=== PATIENT | female | born 1945 | race Caucasian/White ===

== ENCOUNTER 2018-12-27 09:42 | Observation (INO) | payer MEDICARE, OTHER ==
[~2018-12-27] VITALS: Ht 157.5 cm; Wt 56.8 kg
[2018-12-27 10:36] LABS: BASOPHILS # (AUTO) 0.1 X10'3 (0-0.2); BASOPHILS % (AUTO) 1.3 % (0-1); EOSINOPHILS # (AUTO) 0.1 X10'3 (0-0.9); EOSINOPHILS % (AUTO) 1.9 % (0-6); HEMATOCRIT 39.3 % (35.0-45.0); HEMOGLOBIN 13.5 g/dl (12.0-16.0); LYMPHOCYTES # (AUTO) 1.3 X10'3 (1.1-4.8); LYMPHOCYTES % (AUTO) 20.1 % (21-51); MEAN CORPUSCULAR HEMOGLOBIN 30.8 PG (27.0-31.0); MEAN CORPUSCULAR HGB CONC 34.4 g/dL (33.0-36.5); MEAN CORPUSCULAR VOLUME 89.7 FL (78-98); MONOCYTES # (AUTO) 0.7 X10'3 (0-0.9); MONOCYTES % (AUTO) 11.1 % (2-12); NEUTROPHILS # (AUTO) 4.3 X10'3 (1.8-7.7); NEUTROPHILS % (AUTO) 65.6 % (42-75); PLATELET COUNT 316 X10'3 (140-440); RED BLOOD COUNT 4.38 X10'6 (4.20-5.60); WHITE BLOOD COUNT 6.6 X10'3 (4.5-11.0)
--- NOTE | 2018-12-27 10:43 | NUR ---
PT AMBULATORY TO BATHROOM TO TRY TO PROVIDE URINE SAMPLE PER ORDERS NOW
[2018-12-27 10:50] LABS: ALANINE AMINOTRANSFERASE 18 U/L (12-78); ALBUMIN 3.7 G/DL (3.4-5.0); ALBUMIN/GLOBULIN RATIO 0.8 (1.1-1.5); ALKALINE PHOSPHATASE 143 IU/L (46-116); ANION GAP 10 (8-16); ASPARTATE AMINO TRANSFERASE 14 U/L (10-37); BILIRUBIN,TOTAL 0.4 MG/DL (0.1-1.0); BLOOD UREA NITROGEN 22 MG/DL (7-18); BUN/CREATININE RATIO 21.6 (6.6-38.0); CALCIUM 9.2 MG/DL (8.5-10.1); CHLORIDE 105 MMOL/L (99-107); CREATININE 1.02 MG/DL (0.40-0.90); GLUCOSE 100 MG/DL (70-104); POTASSIUM 4.5 MMOL/L (3.5-5.1); SODIUM 142 MMOL/L (135-145); TOTAL PROTEIN 8.3 G/DL (6.4-8.2); eGFR 53 ML/MIN
[2018-12-27 12:24] LABS: CLARITY,URINE BLOODY (Clear); COLOR,URINE RED (Yellow); UA COLLECTION TYPE VOIDED
[2018-12-27 12:47] LABS: RBC,URINE TNTC /HPF (0-2)
[2018-12-27 12:49] LABS: BACTERIA,URINE NONE SEEN /HPF (Neg); SQUAMOUS EPITHELIAL CELL,UR NONE SEEN /LPF (FEW); WBC,URINE 0-4 /HPF (0-4)
--- NOTE | 2018-12-27 13:36 | NUR ---
EMPTIED PT PARTIDA BAG 500ML KIDD RED URINE, PT NOW GOING TO CT VIA [facility] PER ORDERS
[2018-12-27] MEDS ORDERED: fentaNYL/PF 50MCG/1 ML 2ML syringe IV ONE (14:55)
[2018-12-27] MEDS ORDERED: HYDROcodone/acetaminophen 10/325mg tab PO ONE (15:15)
--- NOTE | 2018-12-27 15:15 | NUR ---
PT ASKING FOR PAIN MEDICATIONS, DR HERNANDEZ ORDERED IV FENTANYL, PT STATES SHE WOULD PREFER NOT TO HAVE IV AND IV MEDICATIONS, PT ASKING FOR NORC, DR HERNANDEZ INFORMED, ORDERS TO FOLLOW.
--- NOTE | 2018-12-27 15:35 | NUR ---
medicated pt for pain with 10/325 norco, removed previous flores cath, placed a 3 way flores cath under sterile procedure, and initiated continous bladder irrigation per orders, pt tolerated procedure well.
[2018-12-27] MEDS ORDERED: nicotine 14mg patch - 24hr TD ONE (16:35)
--- NOTE | 2018-12-27 17:34 | NUR ---
DR HERNANDEZ INFORMED PT CONTINUOUS BLADDER IRRIGATION TOTAL 6000 ML, OUTPUT IS LIGHT PINK, REDUCED CONTINUOUS BLADDER IRRIGATION TO A SLOW DRIP, DR HERNANDEZ INFORMED ADN HE WILL CALL UROLOGIST IN 15 MIN IF HAS NOT HEARD BACK FROM THEM
--- NOTE | 2018-12-27 17:56 | NUR ---
PT HAS NOW RECEIVED 2 BAGS, 6000 ML OF BLADDER IRRIGATION FLUID. URINE IS MEDIUM ALAN. NOTIFY DR HERNANDEZ WHO IS STILL WAITING FOR A CALL FROM THE UROLOGIST.
[2018-12-27] MEDS ORDERED: morphine 4 MG/ML inj SYRINge IV ONE (18:35)
[2018-12-27] MEDS ORDERED: ondansetron/PF 4mg/2ml inj IV ONE (18:35)
[2018-12-27] MEDS ORDERED: ALBU8.5H8 INH (18:43)
--- NOTE | 2018-12-27 18:45 | NUR ---
DR HERNANDEZ IN ROOM TO TALK TO FAMILY AND PT. HE HAS SPOKEN TO THE UROLOGIST AND PT WILL BE ADMITTED TO THE HOSPITAL. PT DOESNT KNOW NAMES OF HER MEDS AND HER SISTER IS GOING TO CALL BACK WHEN SHE GETS HOME TO UPDATE THE NURSE.
--- NOTE | 2018-12-27 19:00 | NUR ---
NOTIFY DR HERNANDEZ THAT PT IS HAVING INCREASED PAIN. ORDERS RECEIVED. ADMIN ORDERED. PT STATES SHE IS FEELING MUCH BETTER NOW.
[2018-12-27] MEDS ORDERED: ESOM40CA PO (19:06)
[2018-12-27] MEDS ORDERED: GABA-532 PO (19:06)
[2018-12-27] MEDS ORDERED: MESA0.37 PO (19:06)
[2018-12-27] MEDS ORDERED: METO-292 PO (19:06)
[2018-12-27] MEDS ORDERED: AMIT10TA6 PO (19:06)
[2018-12-27] MEDS ORDERED: HYDR25TA4 PO (19:06)
[2018-12-27] MEDS ORDERED: SERT25TA PO (19:06)
[2018-12-27] MEDS ORDERED: TIOT4MIS3 INH (19:06)
[2018-12-27] MEDS ORDERED: AMLO-94 PO (19:06)
--- NOTE | 2018-12-27 19:07 | NUR ---
DAUGHTER WILL CALL IN TO VERIFY MEDS.
[2018-12-27] MEDS ORDERED: acetaminophen 325mg tablet PO PRN (20:00)
[2018-12-27] MEDS ORDERED: magnesium hydroxide 30ml (MOM) UD suspension PO PRN (20:00)
[2018-12-27] MEDS ORDERED: morphine 2 MG/ML inj. syringe IV PRN (20:00)
[2018-12-27] MEDS ORDERED: ondansetron/PF 4mg/2ml inj IV PRN (20:00)
[2018-12-27] MEDS ORDERED: mag hydrox/Alum hydrox/simeth 30ml oral suspension PO PRN (20:00)
[2018-12-27] MEDS ORDERED: iohexol 350MG/ML 100ml bottle IV ONE (20:08)
--- NOTE | 2018-12-27 20:20 | NUR ---
PT GOING TO CT SO THE 3 WAY PARTIDA IN AND OUT PORTS WERE PLUGGED EACH WITH A 60 ML C[address] TIP SYRINGE. DR[address] HERNANDEZ AT THE BEDSIDE. STATES THIS IS FINE. TO CONTINUE CBI WHEN SHE RETURNS FROM CT.
--- NOTE | 2018-12-27 20:26 | NUR ---
PT DAUGHTER REYNA BABIN [phone].
[2018-12-27] MEDS: amitriptyline 10mg tablet PO SCH (21:48)
[2018-12-27] MEDS: morphine 2 MG/ML inj. syringe IV PRN (21:49)
[2018-12-27] MEDS: normal saline 1000ml 1,000 ML IV SCH (21:50)
--- NOTE | 2018-12-27 22:22 | NUR ---
REYNA BABIN PT'S DAUGHTER CALLED TO CHECK ON PT AND REQUESTED THAT IF THERE ARE ANY CHANGES THAT WE PLEASE CALL HER. PT OK WITH GIVING HER INFORMATION.
--- NOTE | 2018-12-27 23:14 | NUR ---
PT PLACED ON HOSPITAL BED FOR COMFORT
--- NOTE | 2018-12-28 06:03 | NUR ---
UROLOGIST AT BEDSIDE TO CHECK ON PT, STATED SHE STOPPED THE IRRIGATION AT THIS TIME AND WOULD LIKE NURSING TO CHECK ON IT IN THE NEXT 30-45 MINUTES AND THAT LONG HER URINE STAYS CLEAR WE CAN REMOVE HER HER CATHETER AND SEE IF THE PT CAN URINATE.
[2018-12-28 06:45] LABS: BASOPHILS # (AUTO) 0.1 X10'3 (0-0.2); BASOPHILS % (AUTO) 0.8 % (0-1); EOSINOPHILS # (AUTO) 0.1 X10'3 (0-0.9); EOSINOPHILS % (AUTO) 1.7 % (0-6); HEMATOCRIT 34.5 % (35.0-45.0); HEMOGLOBIN 11.8 g/dl (12.0-16.0); LYMPHOCYTES # (AUTO) 1.1 X10'3 (1.1-4.8); LYMPHOCYTES % (AUTO) 14.9 % (21-51); MEAN CORPUSCULAR HGB CONC 34.1 g/dL (33.0-36.5); MEAN CORPUSCULAR VOLUME 90.7 FL (78-98); MEAN PLATELET VOLUME 7.3 FL (7.4-10.4); MONOCYTES # (AUTO) 1.1 X10'3 (0-0.9); MONOCYTES % (AUTO) 15.1 % (2-12); NEUTROPHILS # (AUTO) 5.1 X10'3 (1.8-7.7); NEUTROPHILS % (AUTO) 67.5 % (42-75); PLATELET COUNT 260 X10'3 (140-440); RED CELL DISTRIBUTION WIDTH 13.1 % (11.5-14.5); WHITE BLOOD COUNT 7.6 X10'3 (4.5-11.0)
[2018-12-28 06:57] LABS: ALBUMIN 3.1 G/DL (3.4-5.0); ANION GAP 11 (8-16); BLOOD UREA NITROGEN 20 MG/DL (7-18); BUN/CREATININE RATIO 19.4 (6.6-38.0); CALCIUM 8.5 MG/DL (8.5-10.1); CHLORIDE 107 MMOL/L (99-107); CREATININE 1.03 MG/DL (0.40-0.90); GLUCOSE 102 MG/DL (70-104); POTASSIUM 4.5 MMOL/L (3.5-5.1); SODIUM 144 MMOL/L (135-145); TOTAL CARBON DIOXIDE 26.3 MMOL/L (24-32); eGFR 52 ML/MIN
[2018-12-28] MEDS: morphine 2 MG/ML inj. syringe IV PRN (07:08)
[2018-12-28 07:33] LABS: TOTAL CELLS COUNTED 100
[2018-12-28 07:34] LABS: PLATELET ESTIMATE NORMAL
--- NOTE | 2018-12-28 07:42 | NUR ---
REPORT CALLED TO DONTAE TURCIOS ON [facility].
[2018-12-28 08:00] VITALS: BP 130/43
[2018-12-28] MEDS: MESALAMINE PO SCH (08:00)
[2018-12-28] MEDS: amLODIPine 5mg tablet PO SCH (08:00)
[2018-12-28] MEDS: lisinopril 20mg tablet PO SCH (08:00)
[2018-12-28] MEDS: HYDROchlorothiazide 25mg tablet PO SCH (08:00)
[2018-12-28] MEDS: pantoprazole 40mg Tablet.DR PO SCH (09:40)
[2018-12-28] MEDS: gabapentin 300mg capsule PO SCH (09:40)
[2018-12-28] MEDS: sertraline 25mg tablet PO SCH (09:41)
[2018-12-28] MEDS: normal saline 1000ml 1,000 ML IV SCH ×3 (09:46→20:43)
[2018-12-28 10:00] VITALS: BP 97/34
[2018-12-28] MEDS: albuterol 2.5 MG/3 ML nebule NEB PRN (17:14)
[2018-12-28 18:00] VITALS: BP 131/41
--- NOTE | 2018-12-28 18:28 | NUR ---
Patient in room [facility]TH[facility] 4021. I have received report from DONTAE Andersen and had the opportunity to ask questions and assume patient care.
[2018-12-28] MEDS: amitriptyline 10mg tablet PO SCH (20:42)
[2018-12-28 22:00] VITALS: BP_SYST 113; BP_SYST 131; BP_DIAS 26; BP_DIAS 42
[2018-12-29] MEDS: albuterol 2.5 MG/3 ML nebule NEB PRN ×2 (03:25→10:17)
[2018-12-29 05:52] LABS: BASOPHILS # (AUTO) 0.1 X10'3 (0-0.2); BASOPHILS % (AUTO) 0.8 % (0-1); EOSINOPHILS % (AUTO) 0.4 % (0-6); HEMATOCRIT 31.1 % (35.0-45.0); HEMOGLOBIN 10.8 g/dl (12.0-16.0); LYMPHOCYTES # (AUTO) 0.9 X10'3 (1.1-4.8); LYMPHOCYTES % (AUTO) 12.7 % (21-51); MEAN CORPUSCULAR HEMOGLOBIN 31.1 PG (27.0-31.0); MEAN CORPUSCULAR HGB CONC 34.7 g/dL (33.0-36.5); MEAN CORPUSCULAR VOLUME 89.7 FL (78-98); MEAN PLATELET VOLUME 6.9 FL (7.4-10.4); MONOCYTES # (AUTO) 0.8 X10'3 (0-0.9); MONOCYTES % (AUTO) 11.6 % (2-12); NEUTROPHILS # (AUTO) 5.4 X10'3 (1.8-7.7); NEUTROPHILS % (AUTO) 74.5 % (42-75); PLATELET COUNT 231 X10'3 (140-440); RED BLOOD COUNT 3.46 X10'6 (4.20-5.60); RED CELL DISTRIBUTION WIDTH 12.7 % (11.5-14.5); WHITE BLOOD COUNT 7.2 X10'3 (4.5-11.0)
[2018-12-29 05:59] LABS: ALBUMIN 2.7 G/DL (3.4-5.0); ANION GAP 10 (8-16); BLOOD UREA NITROGEN 12 MG/DL (7-18); BUN/CREATININE RATIO 13.5 (6.6-38.0); CALCIUM 7.8 MG/DL (8.5-10.1); CHLORIDE 106 MMOL/L (99-107); CREATININE 0.89 MG/DL (0.40-0.90); GLUCOSE 97 MG/DL (70-104); POTASSIUM 3.8 MMOL/L (3.5-5.1); SODIUM 139 MMOL/L (135-145); TOTAL CARBON DIOXIDE 23.5 MMOL/L (24-32); eGFR 62 ML/MIN
[2018-12-29 06:00] VITALS: BP 113/44
--- NOTE | 2018-12-29 06:23 | NUR ---
Problems reprioritized. Patient report given, questions answered & plan of care reviewed with DONTAE Andersen.
[2018-12-29] MEDS: normal saline 1000ml 1,000 ML IV SCH (06:26)
[2018-12-29] MEDS: lisinopril 20mg tablet PO SCH (08:00)
[2018-12-29] MEDS: amLODIPine 5mg tablet PO SCH (08:00)
[2018-12-29] MEDS: HYDROchlorothiazide 25mg tablet PO SCH (08:00)
[2018-12-29] MEDS: MESALAMINE PO SCH (08:00)
[2018-12-29] MEDS: pantoprazole 40mg Tablet.DR PO SCH (08:31)
[2018-12-29] MEDS: sertraline 25mg tablet PO SCH (08:39)
[2018-12-29] MEDS: gabapentin 300mg capsule PO SCH (08:39)
[2018-12-29 10:00] VITALS: BP 135/33
--- NOTE | 2018-12-29 10:12 | NUR ---
evaluated color of urine, slightly occupational hygienist than sabine, but clear, spoke to MD Elaine on the phone, she advised to take the FC out and see if the pt could urinate, record pvr once or twice to make sure she is emptying bladder and if urine is not too bloody she may be able to go home today- will continue to monitor and check in with this afternoon.
--- NOTE | 2018-12-29 11:01 | NUR ---
Per Dr Elaine urologist catheter was removed. Hat placed in toilet, pt currently ambulating with family members. Will continue to monitor. Addendum: 12/29/18 at 1102 by Rosmery Blanchard RN Amended: Links added.
--- NOTE | 2018-12-29 11:23 | NUR ---
pt attempted to urinate. Passed 25 ml pink urine and a large blood clot. 0 residual pvr
--- NOTE | 2018-12-29 11:44 | NUR ---
spoke to daughter Scarlett and she read the pt's med bottles to me over the phone. med list from MD office in [place] updated 11/30/18 does not include benazapril or lisinopril. Mesalamine not available to bring in from family. HCTZ is half a tab. Confirmed with pt. Discussed with Alexandrea, pharmacist.
--- NOTE | 2018-12-29 11:57 | NUR ---
pt got up and states that she urinated into the hat and then dumped it and flushed. She states the hat was "too full" so she dumped it. States there were no clots and it was light pink. Advised pt that we need to measure her output and compare to PVR. She states understanding and agrees with plan of care
[2018-12-29] MEDS ORDERED: AMLO10TA13 PO (12:29)
[2018-12-29] MEDS ORDERED: MONT10TA24 PO (12:32)
[2018-12-29] MEDS: morphine 2 MG/ML inj. syringe IV PRN (13:45)
[2018-12-29] MEDS ORDERED: LISI-600 PO (15:41)
[2018-12-29] MEDS ORDERED: NOR5T PO (15:41)
== END 2018-12-29 16:40 | disposition home or self-care (01) ==
LOC: ER 09:43 → ED HOLD 20:07 → EDBEDREQ 12-28 05:46 → ORTHO 4S 12-28 07:58
PROVIDERS: ADMIT Hospitalist; ATTEND Internal Medicine
DX: R31.0 Gross hematuria (principal); J44.9 Chronic obstructive pulmonary disease, unspecified; I10 Essential (primary) hypertension; F41.9 Anxiety disorder, unspecified; D62 Acute posthemorrhagic anemia; G62.9 Polyneuropathy, unspecified; F32.9 Major depressive disorder, single episode, unspecified; I77.1 Stricture of artery; F17.210 Nicotine dependence, cigarettes, uncomplicated; Z79.899 Other long term (current) drug therapy
CPT/HCPCS: 36415; 74174; 74176; 80048; 80053; 81001; 85025; 85610; 87081; 94640; 94760; 96374; 96375; 96376; 99284; G0378; J2270; J2405; J7030; Q9967; J8597